=== PATIENT | female | born 1970 | race Caucasian/White ===

== ENCOUNTER 2025-07-14 09:55 | Emergency (ER) | payer BC, SELFPAY ==
[2025-07-14 10:01] VITALS: BP 157/100
--- NOTE | 2025-07-14 10:30 | ED.MUSCINJ ---
HPI-Injury
General
Chief Complaint: Musculo-Skeletal Complaint
Source: patient
Exam Limitations: none
Time Seen by Provider: 07/14/25 10:25
History of Present Illness-Injury
Initial Injury comments:
55-year-old female presents complaining of left noe pain. This was most noticeable as of yesterday got worse today. She notes redness and swelling to the anterior left noe that hurts worse to the touch. She has a history of varicose veins and
had her veins treated about 8 months ago. No fevers or chills. She is not a diabetic. She is not anticoagulated. No vomiting. No other complaints at this time
Phy Exam
Physical Exam
Physical Exam:
General: Well-appearing female no acute respiratory distress
HEENT normocephalic atraumatic
Skin: Erythema noted to the anterior distal left noe that is tender to the touch with underlying induration no obvious fluctuance lymphangitic streaking
Vascular: 2+ DP pulse left foot negative Homans no calf tenderness
Neurologic: Good sensation left foot
Injury Course
Orders/Labs/Results
Orders:
Orders
07/14/25 10:32
Venous Doppler Lwr Ext Left [US Periph Venous LOWER Ext LT] Urgent
Comment:
Reason For Exam: pain, swelling anterior noe
MDM/Problems Addressed
Differential Diagnosis Includes:
Left noe erythema and pain. Consider cellulitis versus phlebitis versus DVT or abscess. Ultrasound left leg pending.
*Pulse Oximetry
SaO2: 98
Oxygen Mode of Delivery: Room air
Patient hypoxic: no
*Critical Care Note
Total Time (30-74mins, 75-104mins- exclusive of procedures): Not Applicable
Update Note
Update Note:
Ultrasound negative for DVT question edema in anterior noe but no fluid collection to suggest abscess. Cellulitis versus phlebitis. Will cover with Keflex use warm compresses and NSAIDs. Stable for discharge
ED Attending Note
-
Portions of this chart may have been created with voice recognition software.� Occasional wrong word or��sound alike� substitutions may have occurred due to the inherent limitations of voice recognition software.
Discharge Plan
Departure
Patient Disposition: Home (Routine Discharge)
Date of Disposition: 07/14/25
Time of Disposition: 13:53
Patient with high blood pressure during this ER visit?: No
Discharge Problem:
Cellulitis
Instructions: Superficial vein phlebitis and thrombosis, Cellulitis (skin infection) in adults - ED (DC)
Prescriptions:
New
cephalexin 500 mg capsule
500 mg PO TID 7 Days Qty: 21 0RF
Referrals:
Elizabeth Garcia CRNP [Family Provider, General]
Activity Restrictions/Additional Instructions:
Use warm compresses to the area. Take anti-inflammatories for pain. Use antibiotic as directed. Return if worse otherwise
Interventions
Interventions:
*Risk Screen - Suicide Last Done: 07/14/25 10:01
*General Assessment Last Done: 07/14/25 12:22
*Neglect/Abuse Screening Last Done: 07/14/25 10:01
*ED- Fall Risk Assessment Last Done: 07/14/25 12:22
*ED COVID-19 Vaccine History Last Done: 07/14/25 12:22
ED-Musculoskeletal Assessment Last Done: 07/14/25 12:22
Discharge Date and Time
Print Language: CYMRAES
[2025-07-14 12:22] VITALS: BP 125/85; BMI 35.9
== END 2025-07-14 14:20 | disposition home or self-care (01) ==
LOC: EMR 09:55
PROVIDERS: EMERGENCY PHYSICIAN Emergency Medicine; FAMILY PHYSICIAN Nurse Practitioner Adult Health
DX: L03.116 Cellulitis of left lower limb (principal)
CPT/HCPCS: 99284; 93971